=== PATIENT | male | born 1990 | race Caucasian/White ===

== ENCOUNTER 2023-01-30 07:46 | Day surgery (SDC) | payer BC, SELFPAY ==
[2023-01-30 07:57] VITALS: BP 143/84; PULSE 79; RESP 16; TEMP 36.6; O2SAT 98
[2023-01-30 08:46] VITALS: BP 139/56; PULSE 87; RESP 20; O2SAT 97
[2023-01-30] MEDS: BUPIVACAINE HCL 0.25% PF 25 MG/10 ML VIAL 4 ML INJ (08:47)
[2023-01-30 08:48] VITALS: BP 146/76; PULSE 97; RESP 20; O2SAT 96
--- NOTE | 2023-01-30 08:57 | W.PM.PROCNOT ---
Date of procedure: 01/30/23 Pre-op diagnosis: thoracic spondylosis Post-op diagnosis: same Procedure: Right thoracic 11,12 and lumbar 1 medial branch block Postop diagnosis same Under fluoroscopic guidance Solution injected: 2millilitersMarcaine 0.25% Anesthesia :none Immediate complications none Time out process compliant After informed consent obtained from the patient placed in the Prone proposition . area was prepped and draped in a sterile fashion using Cloraprep .25 gauge spinal needle inserted over each of the above mentioned target areas . Blackburn were directed towards the target under fluoroscopic guidance . after encountering each of the targets , no indication of intravascular intraneuronal or intrathecal needle tip placement. Then 0 .5 to 1 Milliliter was injected at each level. Blackburn removed postoperatively. patient transferred to recovery in stable condition to be discharged home after meeting criteria Anesthesia: Local Surgeon: Roberto Carlos Zambrano
== END 2023-01-30 08:52 | disposition home or self-care (01) ==
PROVIDERS: PCP Family Medicine; Visit Provider Anesthesiology Pain Medicine
DX: M47.814 Spondylosis without myelopathy or radiculopathy, thoracic region (principal)
CPT/HCPCS: 64490; 64491

== ENCOUNTER 2023-03-02 13:45 | Emergency (ER) | payer BC, SELFPAY ==
[2023-03-02 13:53] VITALS: BP 146/88; PULSE 98; RESP 18; TEMP 36.4; O2SAT 99; BMI 28.0
--- NOTE | 2023-03-02 13:57 | US_ITS ---
The [address] [address] Patient Name: PARISH WOLF MRN: [id number] date: 1990 Sex: M Assigned Patient Location: ED.MAIN Current Patient Location: Accession/Order Number: [id number] Exam Date: 03/02/2023 14:00 Report Date: 03/02/2023 14:51 At the request of: HALEIGH NORTON Procedure: US scrotum doppler EXAMINATION: US scrotum doppler HISTORY: left testicular pain r/o torsion COMPARISON: No relevant comparison available. TECHNIQUE: High-resolution sonographic imaging of the scrotum and contents was performed. FINDINGS: RIGHT: TESTICLE: Prior orchiectomy for leukemia. LEFT: TESTICLE: Homogeneous echotexture. No visible mass. Color Doppler flow is present. Spectral Doppler demonstrates arterial waveform and flow, 4/2 cm/s (PSV/EDV), and normal venous flow averaging 1 cm/s. EPIDIDYMIS: Normal size and echogenicity. OTHER: Prominent varicocele with vessels dilated up to 3 mm. US/US scrotum doppler IMPRESSION: 1. No testicular torsion or acute findings to account for patient's symptoms. 2. Prominent varicocele on left without appreciable thrombus. Electronically authenticated by: HILARIO ERNST Date: 03/02/2023 14:51
--- NOTE | 2023-03-02 14:00 | ED_ITS ---
Documented by User: CHELY Winkler 03/02/23 15:33 HPI - General Adult General Chief complaint: Urogenital-Male Stated complaint: PAIN IN ABDOMEN AND L TESTICLE Time Seen by Provider: 03/02/23 13:51 Source: patient Mode of arrival: walk-in History of Present Illness HPI narrative: patient is a 33-year-old male who presents to the Emergency Room with concerns of left testicular pain. Patient has a permanent history of leukemia, oh treatment since last year but did have right testicular involvement with orchectomy remotely. Patient states he is on testosterone and has atrophy of the left testicle with prominent varicocele by history, noted pain starting yesterday increasing today, oncology referred him to urology who over the phone told him to come to the Emergency Room 1st for evaluation. Patient gets his treatments through the [facility]. He denies any fevers or chills. Notes pain is moderate requesting only Tylenol/Motrin for pain. Patient denies any chest pain or shortness of breath, notes pain originates in the testicle and radiates to the left groin. He denies any penile discharge or drainage, denies dysuria. Related Data Home Medications Medication Instructions Recorded Confirmed amitriptyline 25 mg tablet 25 mg PO .hs 01/22/23 01/30/23 baclofen 10 mg tablet 10 mg PO TID PRN muscle spasm 01/22/23 01/30/23 bupropion HCl 300 mg 24 hr tablet, 300 mg PO QDAY 01/22/23 01/30/23 extended release gabapentin 600 mg tablet 600 mg PO TID 01/22/23 01/22/23 lorazepam 1 mg tablet (Ativan) 1 mg PO TID PRN sleep 01/22/23 01/30/23 ondansetron HCl 8 mg tablet 8 mg PO .hs PRN nausea and vomiting 01/22/23 01/30/23 testosterone cypionate 200 mg/mL 200 mg IM .[id number] 01/22/23 01/30/23 intramuscular oil Allergies Allergy/AdvReac Type Severity Reaction Status Date / Time amend Allergy Severe Vomiting Uncoded 01/30/23 08:03 Review of Systems ROS Constitutional Denies: fever or chills Eyes Denies: change in vision Ears, nose, mouth, and throat Denies: throat pain or neck pain Cardiovascular Denies: chest pain or palpitations Respiratory Denies: shortness of breath or cough Gastrointestinal Denies: abdominal pain or nausea Genitourinary Reports: testicular pain; Denies: painful urination, urinary frequency or urinary urgency Musculoskeletal Denies: back pain, neck pain or extremity pain Integumentary/Breast Denies: rash or redness Neurological Denies: headache Psychiatric Denies: anxiety [facility] Medical History (Updated 03/02/23 @ 15:33 by CHELY Winkler) Surgical History (Updated 01/22/23 @ 07:32 by Amanda Mejia) Exam Narrative Exam Narrative: Nurses notes and vital signs reviewed and patient is not hypoxic. General: The patient appears well and in no apparent distress. Patient is resting comfortably on cart. Skin: Warm, dry, no pallor noted. Head: Normocephalic, atraumatic Neck: Supple, trachea mid-line, no tenderness, no lymphadenopathy Eye: Pupils are equal, round and reactive to light, EOMI Ears, Nose, Mouth, and Throat: external exam unremarkable Cardiovascular: Regular Rate and Rhythm Respiratory: Patient is in no distress, no accessory muscle use, lungs are clear to auscultation, no wheezing, rales or rhonchi. Chest Wall: no tenderness Back: non-tender, no CVA tenderness Musculoskeletal: normal ROM, no tenderness, no swelling GI: Normal bowel sounds, no tenderness to palpation,minimal soreness. Left lower quadrant, no palpable mass. no masses appreciated. No rebound, guarding, or rigidity noted. : patient examined while standing, JOSE Bettencourt at the bedside. Patient circumcised male, no swelling or erythema. 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 Cremasteric reflex is present. No palpable hernia. Tenderness in the left inguinal region noted. No prominent lymphadenopathy Neurological: A&O x4 Psychiatric: Cooperative Constitutional Vital Signs, click to edit/add: Last Vital Signs Temp 97.6 F 03/02/23 13:53 Pulse 98 H 03/02/23 13:53 Resp 18 03/02/23 13:53 BP 146/88 H 03/02/23 13:53 Pulse Ox 99 03/02/23 13:53 O2 Del Method Room Air 03/02/23 13:53 Course Vital Signs Vital signs: Vital Signs Temperature 97.6 F 03/02/23 13:53 Pulse Rate 98 H 03/02/23 13:53 Respiratory Rate 18 03/02/23 13:53 Blood Pressure 146/88 H 03/02/23 13:53 Pulse Oximetry 99 03/02/23 13:53 Oxygen Delivery Method Room Air 03/02/23 13:53 Temperature 97.6 F 03/02/23 13:53 Pulse Rate 98 H 03/02/23 13:53 Respiratory Rate 18 03/02/23 13:53 Blood Pressure 146/88 H 03/02/23 13:53 Pulse Oximetry 99 03/02/23 13:53 Oxygen Delivery Method Room Air 03/02/23 13:53 Medical Decision Making MDM Narrative Medical decision making narrative: patient appears no distress, agreeable to Tylenol and Motrin for pain. We'll check baseline labs and obtain ultrasound for further evaluation of his left testicle pain. Symptoms started yesterday. discussed laboratory studies, urinalysis, ultrasound. We discussed the risks and benefits of prophylactic antibiotic. Patient would like to hold today, he is relieved that there is not any abdomen or mallet on the testicle itself other than the varicocele which she has previously aware of. He presents wearing boxer briefs, states he will try more supportive underwear, ice and elevation through the weekend with oral Motrin. He has scheduled follow-up with [facility] urology and we'll call if he has any concerns and may return to the Emergency Room if his symptoms worsen or new symptoms develop. Abdomen is unremarkable. The [facility] or to return to the emergency department should any of the signs or symptoms worsen or new symptoms develop. Patient had questions answered. The patient agrees with the following Diagnosis and Treatment plan and the patient will be discharged home. Lab Data Labs: Lab Results 03/02/23 Range/Units 14:38 WBC 6.0 (4.0-11.0) 10^3/uL RBC 4.94 (4.70-6.10) 10^6/uL Hgb 15.2 (14.0-18.0) g/dL Hct 43.9 (42.0-54.0) % MCV 88.9 (80.0-94.0) fL MCH 30.8 (25.9-34.0) pg MCHC 34.6 (29.9-35.2) g/dL RDW 13.2 (11.0-15.0) % Plt Count 152 (150-450) 10^3/uL MPV 10.4 (9.5-13.5) fL Neut % (Auto) 61.9 (43.0-75.0) % Lymph % (Auto) 25.5 (20.5-60.0) % [place] % (Auto) 10.1 (1.7-12.0) % Eos % (Auto) 1.5 (0.9-7.0) % Baso % (Auto) 0.7 (0.2-2.0) % Neut # (Auto) 3.7 (1.4-6.5) 10^3/uL Lymph # (Auto) 1.5 (1.2-3.8) 10^3/uL [place] # (Auto) 0.6 (0.3-0.8) 10^3/uL Eos # (Auto) 0.1 (0.0-0.7) 10^3/uL Baso # (Auto) 0.0 (0.0-0.1) 10^3/uL Abs Immat Gran (auto) 0.02 (0.00-0.03) 10^3/uL Imm/Tot Granulo (auto) 0.3 (0.0-0.5) % Sodium 140 (136-145) mmol/L Potassium 3.9 (3.5-5.1) mmol/L Chloride 104 (98-107) mmol/L Carbon Dioxide 31.9 (21.0-32.0) mmol/L Anion Gap 8.0 BUN 12.0 (7.0-18.0) mg/dL Creatinine 1.02 (0.70-1.30) mg/dL Est GFR ( Amer) >60 (>=60) Est GFR (Non-Af Amer) >60 (>=60) BUN/Creatinine Ratio 11.8 Glucose 112 H (74-106) mg/dL Calcium 9.3 (8.5-10.1) mg/dL Urine Color Yellow (YELLOW) Urine Clarity Clear (CLEAR) Urine pH 7.0 (5.0-9.0) Ur Specific Campbell 1.015 (1.005-1.025) Urine Protein Negative (NEG/TRACE) mg/dL Urine Glucose (UA) Negative (NEGATIVE) mg/dL Urine Ketones Negative (NEGATIVE) mg/dL Urine Occult Blood Negative (NEGATIVE) Urine Nitrite Negative (NEGATIVE) Urine Bilirubin Negative (NEGATIVE) Urine Urobilinogen 0.2 (0.2-1.0) EU/dL Ur Leukocyte Esterase Negative (NEGATIVE) Imaging Data US - abdomen: Radiologist's impression: Procedure: US scrotum doppler EXAMINATION: US scrotum doppler HISTORY: left testicular pain r/o torsion COMPARISON: No relevant comparison available. TECHNIQUE: High-resolution sonographic imaging of the scrotum and contents was performed. FINDINGS: RIGHT: TESTICLE: Prior orchiectomy for leukemia. LEFT: TESTICLE: Homogeneous echotexture. No visible mass. Color Doppler flow is present. Spectral Doppler demonstrates arterial waveform and flow, 4/2 cm/s (PSV/EDV), and normal venous flow averaging 1 cm/s. EPIDIDYMIS: Normal size and echogenicity. OTHER: Prominent varicocele with vessels dilated up to 3 mm. US/US scrotum doppler IMPRESSION: 1. No testicular torsion or acute findings to account for patient's symptoms. 2. Prominent varicocele on left without appreciable thrombus. Electronically authenticated by: HILARIO ERNST Date: 03/02/2023 14:51 Discharge Plan Discharge Chief Complaint: Urogenital-Male Clinical Impression: Left varicocele, Left testicular pain Patient Disposition: Home, Self-Care Time of Disposition Decision: 15:32 Condition: Good Mode of Transportation: Private Vehicle Prescriptions / Home Meds: No Action amitriptyline 25 mg tablet 25 mg PO .hs Patient Comments: as needed baclofen 10 mg tablet 10 mg PO TID PRN (Reason: muscle spasm) Rx Instructions: 1/2-1 tab tid gabapentin 600 mg tablet 600 mg PO TID Patient Comments: not taking testosterone cypionate 200 mg/mL oil 200 mg IM .[id number] ondansetron HCl 8 mg tablet 8 mg PO .hs PRN (Reason: nausea and vomiting) Patient Comments: as needed bupropion HCl 300 mg tablet extended release 24 hr 300 mg PO QDAY lorazepam [Ativan] 1 mg tablet 1 mg PO TID PRN (Reason: sleep) Patient Comments: as needed Instructions: Varicocele (ED), Testicle Pain (ED) Additional Instructions: keep appointment with [facility] urology. Return to Emergency Room if symptoms worsen or new symptoms develop Stand Alone Forms: Portal Instructions Referrals: Mickey Ramesh MD [Primary Care Provider] - 1 week Discharge Date/Time: 03/02/23 15:38 Documented by User: Purvi Benton MD 03/02/23 16:40 HPI - General Adult General Chief complaint: Urogenital-Male Stated complaint: PAIN IN ABDOMEN AND L TESTICLE Time Seen by Provider: 03/02/23 13:51 Related Data Home Medications Medication Instructions Recorded Confirmed amitriptyline 25 mg tablet 25 mg PO .hs 01/22/23 01/30/23 baclofen 10 mg tablet 10 mg PO TID PRN muscle spasm 01/22/23 01/30/23 bupropion HCl 300 mg 24 hr tablet, 300 mg PO QDAY 01/22/23 01/30/23 extended release gabapentin 600 mg tablet 600 mg PO TID 01/22/23 01/22/23 lorazepam 1 mg tablet (Ativan) 1 mg PO TID PRN sleep 01/22/23 01/30/23 ondansetron HCl 8 mg tablet 8 mg PO .hs PRN nausea and vomiting 01/22/23 01/30/23 testosterone cypionate 200 mg/mL 200 mg IM .[id number] 01/22/23 01/30/23 intramuscular oil Allergies Allergy/AdvReac Type Severity Reaction Status Date / Time amend Allergy Severe Vomiting Uncoded 01/30/23 08:03 [facility] Medical History (Updated 03/02/23 @ 15:33 by CHELY Winkler) Surgical History (Updated 01/22/23 @ 07:32 by Amanda Mejia) Exam Constitutional Vital Signs, click to edit/add: Last Vital Signs Temp 97.6 F 03/02/23 13:53 Pulse 98 H 03/02/23 13:53 Resp 18 03/02/23 13:53 BP 146/88 H 03/02/23 13:53 Pulse Ox 99 03/02/23 13:53 O2 Del Method Room Air 03/02/23 13:53 Course Vital Signs Vital signs: Vital Signs Temperature 97.6 F 03/02/23 13:53 Pulse Rate 98 H 03/02/23 13:53 Respiratory Rate 18 03/02/23 13:53 Blood Pressure 146/88 H 03/02/23 13:53 Pulse Oximetry 99 03/02/23 13:53 Oxygen Delivery Method Room Air 03/02/23 13:53 Temperature 97.6 F 03/02/23 13:53 Pulse Rate 98 H 03/02/23 13:53 Respiratory Rate 18 03/02/23 13:53 Blood Pressure 146/88 H 03/02/23 13:53 Pulse Oximetry 99 03/02/23 13:53 Oxygen Delivery Method Room Air 03/02/23 13:53 Medical Decision Making MDM Narrative Medical decision making narrative: patient appears no distress, agreeable to Tylenol and Motrin for pain. We'll check baseline labs and obtain ultrasound for further evaluation of his left testicle pain. Symptoms started yesterday. discussed laboratory studies, urinalysis, ultrasound. We discussed the risks and benefits of prophylactic antibiotic. Patient would like to hold today, he is relieved that there is not any abdomen or mallet on the testicle itself other than the varicocele which she has previously aware of. He presents wearing boxer briefs, states he will try more supportive underwear, ice and elevation through the weekend with oral Motrin. He has scheduled follow-up with [facility] urology and we'll call if he has any concerns and may return to the Emergency Room if his symptoms worsen or new symptoms develop. Abdomen is unremarkable. [facility] or to return to the emergency department should any of the signs or symptoms worsen or new symptoms develop. Patient had questions answered. The patient agrees with the following Diagnosis and Treatment plan and the patient will be discharged home. Attending physician attestation I have reviewed the mid-level documentation, agree with the documentation, medical decision making and treatment plan as outlined by the mid-level provider. Lab Data Labs: Lab Results 03/02/23 Range/Units 14:38 WBC 6.0 (4.0-11.0) 10^3/uL RBC 4.94 (4.70-6.10) 10^6/uL Hgb 15.2 (14.0-18.0) g/dL Hct 43.9 (42.0-54.0) % MCV 88.9 (80.0-94.0) fL MCH 30.8 (25.9-34.0) pg MCHC 34.6 (29.9-35.2) g/dL RDW 13.2 (11.0-15.0) % Plt Count 152 (150-450) 10^3/uL MPV 10.4 (9.5-13.5) fL Neut % (Auto) 61.9 (43.0-75.0) % Lymph % (Auto) 25.5 (20.5-60.0) % [place] % (Auto) 10.1 (1.7-12.0) % Eos % (Auto) 1.5 (0.9-7.0) % Baso % (Auto) 0.7 (0.2-2.0) % Neut # (Auto) 3.7 (1.4-6.5) 10^3/uL Lymph # (Auto) 1.5 (1.2-3.8) 10^3/uL [place] # (Auto) 0.6 (0.3-0.8) 10^3/uL Eos # (Auto) 0.1 (0.0-0.7) 10^3/uL Baso # (Auto) 0.0 (0.0-0.1) 10^3/uL Abs Immat Gran (auto) 0.02 (0.00-0.03) 10^3/uL Imm/Tot Granulo (auto) 0.3 (0.0-0.5) % Sodium 140 (136-145) mmol/L Potassium 3.9 (3.5-5.1) mmol/L Chloride 104 (98-107) mmol/L Carbon Dioxide 31.9 (21.0-32.0) mmol/L Anion Gap 8.0 BUN 12.0 (7.0-18.0) mg/dL Creatinine 1.02 (0.70-1.30) mg/dL Est GFR ( Amer) >60 (>=60) Est GFR (Non-Af Amer) >60 (>=60) BUN/Creatinine Ratio 11.8 Glucose 112 H (74-106) mg/dL Calcium 9.3 (8.5-10.1) mg/dL Urine Color Yellow (YELLOW) Urine Clarity Clear (CLEAR) Urine pH 7.0 (5.0-9.0) Ur Specific [place] 1.015 (1.005-1.025) Urine Protein Negative (NEG/TRACE) mg/dL Urine Glucose (UA) Negative (NEGATIVE) mg/dL Urine Ketones Negative (NEGATIVE) mg/dL Urine Occult Blood Negative (NEGATIVE) Urine Nitrite Negative (NEGATIVE) Urine Bilirubin Negative (NEGATIVE) Urine Urobilinogen 0.2 (0.2-1.0) EU/dL Ur Leukocyte Esterase Negative (NEGATIVE) Discharge Plan Discharge Chief Complaint: Urogenital-Male Clinical Impression: Left varicocele, Left testicular pain Patient Disposition: Home, Self-Care Time of Disposition Decision: 15:32 Condition: Good Mode of Transportation: Private Vehicle Prescriptions / Home Meds: No Action amitriptyline 25 mg tablet 25 mg PO .hs Patient Comments: as needed baclofen 10 mg tablet 10 mg PO TID PRN (Reason: muscle spasm) Rx Instructions: 1/2-1 tab tid gabapentin 600 mg tablet 600 mg PO TID Patient Comments: not taking testosterone cypionate 200 mg/mL oil 200 mg IM .[id number] ondansetron HCl 8 mg tablet 8 mg PO .hs PRN (Reason: nausea and vomiting) Patient Comments: as needed bupropion HCl 300 mg tablet extended release 24 hr 300 mg PO QDAY lorazepam [Ativan] 1 mg tablet 1 mg PO TID PRN (Reason: sleep) Patient Comments: as needed Instructions: Varicocele (ED), Testicle Pain (ED) Additional Instructions: keep appointment with [facility] urology. Return to Emergency Room if symptoms worsen or new symptoms develop Stand Alone Forms: Portal Instructions Referrals: Mickey Ramesh MD [Primary Care Provider] - 1 week Discharge Date/Time: 03/02/23 15:38
[2023-03-02] MEDS: IBUPROFEN 600 MG TABLET PO (14:12)
[2023-03-02] MEDS: ACETAMINOPHEN 500 MG TABLET 1000 MG PO (14:12)
[2023-03-02 14:51] LABS: Basophils Percent Auto 0.7 % (0.2-2.0); Eosinophils Absolute Auto 0.1 10^3/uL (0.0-0.7); Eosinophils Percent Auto 1.5 % (0.9-7.0); Hematocrit 43.9 % (42.0-54.0); Hemoglobin 15.2 g/dL (14.0-18.0); Immature Granulocytes Abs Auto 0.02 10^3/uL (0.00-0.03); Immature Granulocytes Pct Auto 0.3 % (0.0-0.5); Lymphocytes Absolute Auto 1.5 10^3/uL (1.2-3.8); Lymphocytes Percent Auto 25.5 % (20.5-60.0); Mean Corpuscular HGB Conc 34.6 g/dL (29.9-35.2); Mean Corpuscular Hemoglobin 30.8 pg (25.9-34.0); Mean Corpuscular Volume 88.9 fL (80.0-94.0); Mean Platelet Volume 10.4 fL (9.5-13.5); Monocytes Absolute Auto 0.6 10^3/uL (0.3-0.8); Monocytes Percent Auto 10.1 % (1.7-12.0); Neutrophils Absolute Auto 3.7 10^3/uL (1.4-6.5); Neutrophils Percent Auto 61.9 % (43.0-75.0); Platelet Count 152 10^3/uL (150-450); Red Blood Count 4.94 10^6/uL (4.70-6.10); Red Cell Distribution Width 13.2 % (11.0-15.0)
[2023-03-02 14:58] LABS: BUN Creatinine Ratio 11.8; Calcium 9.3 mg/dL (8.5-10.1); Carbon Dioxide 31.9 mmol/L (21.0-32.0); Chloride 104 mmol/L (98-107); Estimated GFR (African America >60 (>=60); Estimated GFR (Non-African Ame >60 (>=60); Glucose 112 mg/dL (74-106); Potassium 3.9 mmol/L (3.5-5.1); Sodium 140 mmol/L (136-145)
[2023-03-02 15:03] LABS: Bilirubin Urine NEGATIVE (NEGATIVE); Blood Urine NEGATIVE (NEGATIVE); Clarity Urine CLEAR (CLEAR); Color Urine YELLOW (YELLOW); Glucose Urine UA NEGATIVE (NEGATIVE); Ketones Urine NEGATIVE (NEGATIVE); Leukocyte Esterase Urine NEGATIVE (NEGATIVE); Nitrite Urine NEGATIVE (NEGATIVE); Protein Urine NEGATIVE (NEG/TRACE); Specific Gravity Urine 1.015 (1.005-1.025); Urobilinogen Urine 0.2 EU/dL (0.2-1.0)
[2023-03-02 15:06] LABS: Urine Microscopic Indicated NO
== END 2023-03-02 15:38 | disposition home or self-care (01) ==
PROVIDERS: Personal Emergency Response Attendant; Emergency Provider Emergency Medicine; PCP Family Medicine
DX: I86.1 Scrotal varices (principal); N50.812 Left testicular pain; Z79.899 Other long term (current) drug therapy
CPT/HCPCS: 36415; 76870; 80048; 81003; 85025; 93976; 99284

== ENCOUNTER 2023-03-28 08:05 | Outpatient (OUT) | payer BC, SELFPAY ==
--- NOTE | 2023-03-28 08:39 | PM.CN ---
Consult Note: HPI Data of Consult Requesting Physician: Isela Barbosa NP Primary Care Provider: Mickey Ramesh MD Consult Narrative Reason for consult: MBB #2 f/u Narrative: Alex Monaco a pleasant 33 year old male presents for evaluation of chronic upper back pain. Patient has underwent two MBBs at right T11/12 T12/L1 and would like to discuss proceeding with thermal RFA, has historically had RFAs at these levels with >6 months pain and functional improvement with Dr Weinstein. cc:: CC: Isela Barbosa NP Review of Systems ROS Status of ROS 10 or more systems reviewed and unremarkable except as noted in history and below Musculoskeletal Reports: back pain PFSH PFSH Medical History Surgical History Meds Home Medications and Allergies Home Medications Medication Instructions Recorded Confirmed Type amitriptyline 25 mg tablet 25 mg PO .hs 01/22/23 01/30/23 History baclofen 10 mg tablet 10 mg PO TID PRN muscle spasm 01/22/23 01/30/23 History bupropion HCl 300 mg 24 hr tablet, 300 mg PO QDAY 01/22/23 01/30/23 History extended release gabapentin 600 mg tablet 600 mg PO TID 01/22/23 01/22/23 History lorazepam 1 mg tablet (Ativan) 1 mg PO TID PRN sleep 01/22/23 01/30/23 History ondansetron HCl 8 mg tablet 8 mg PO .hs PRN nausea and vomiting 01/22/23 01/30/23 History testosterone cypionate 200 mg/mL 200 mg IM .[id number] 01/22/23 01/30/23 History intramuscular oil Allergies Allergy/AdvReac Type Severity Reaction Status Date / Time amend Allergy Severe Vomiting Uncoded 01/30/23 08:03 Exam Constitutional Documenting provider has reviewed patient's vital signs: yes Common normals: no apparent distress, oriented x3, healthy appearing, alert and well nourished General appearance: cooperative HENMT Common normals: normocephalic, hearing grossly normal bilaterally and moist oral mucous membranes Head and scalp: normocephalic Eye Common normals: PERRL Pupil: PERRL Neck & C-Spine Common normals: full ROM General: normal visual inspection Chest Common normals: inspection of chest normal Respiratory Common normals: normal respiratory effort, no retractions and no use of accessory muscles Back & Pelvis Thoracic spine/upper back: normal to inspection, pain with ROM, thoracic spinal tenderness and paraspinal muscle tenderness Lumbar spine/lower back: normal to inspection, pain with ROM and lumbar spinal tenderness Other: positive facet loading bilaterally, right side worse than left. Predominately axial back pain. no radiculopathy or loss of strength/sensation Extremity Common normals: normal to inspection, full ROM and normal capillary refill Neuro Common normals: oriented x3, CN's II-XII intact bilaterally, moves all extremities, no focal motor deficits, no sensory deficits noted, deep tendon reflexes 2+ bilaterally and gait normal Sensorium/orientation: alert Motor exam: strength 5/5 throughout and no movement abnormalities noted Psych Common normals: mental status grossly normal, thought process normal, cooperative, affect normal, speech normal and activity/motor behavior normal Speech: normal speech Thought process: normal thought process Results Additional Findings Additional findings: The patient has had over 3 months of moderate to severe upper back pain with functional impairment and inadequate response to conservative care including NSAIDS (unless there are contraindication such as concurrent blood thinners), multiple oral or topical pain medications, and home exercise program/physical therapy.? Patient has completed >6 weeks of guided home exercise program and/or formal physical therapy program without relief of their symptoms.? I have reviewed the imaging of the thoracic and lumbar spine and no red flags were identified.? The imaging reveals radiographic findings consistent with facet arthropathy. The Oswestry Disability Index was completed, and the patient scored a 28%.? The patient noted the following:??moderate pain, pain with lifting weights, pain prevents him from sitting more than 1 hour, pain prevents him from standing more than 1 hour, pain interferes with personal and social life. We discussed the risks and benefits of the procedure with the patient, and we are planning on using sedation as outlined in the guidelines from Medicare unless there is a documented reason that sedation would be strongly recommended.?? The procedure will be completed with fluoroscopic guidance.? Assessment and Plan Assessment and Plan (1) Thoracic spondylosis: (2) Lumbar spondylosis: Plan proceed with thermal RFA under fluoroscopy at right T11/12 T12/L1 under IV sedation, risks vs benefits discussed. Patient has had previous RFAs with IV sedation continue medications as ordered, no side effects f/u 1 month after procedure
== END 2023-03-28 08:06 | disposition home or self-care (01) ==
PROVIDERS: PCP Family Medicine; Visit Provider Nurse Practitioner
DX: M47.814 Spondylosis without myelopathy or radiculopathy, thoracic region (principal); M47.816 Spondylosis without myelopathy or radiculopathy, lumbar region
CPT/HCPCS: G0463

== ENCOUNTER 2023-04-24 07:17 | Day surgery (SDC) | payer BC, SELFPAY ==
[2023-04-24 07:39] VITALS: BP 116/77; PULSE 85; RESP 14; TEMP 36.3; O2SAT 99
[2023-04-24] MEDS: 0.9 % SODIUM CHLORIDE 500 ML IV (07:44)
[2023-04-24] MEDS: METHYLPREDNISOLONE ACETATE 40 MG/ML VIAL INJ (08:35)
[2023-04-24] MEDS: LIDOCAINE HCL 2% 400 MG/20 ML MDV 15 ML INJ (08:35)
[2023-04-24] MEDS: BUPIVACAINE HCL 0.25% PF 25 MG/10 ML VIAL INJ (08:35)
[2023-04-24 08:43] VITALS: BP 108/66; PULSE 89; RESP 100; O2SAT 18
[2023-04-24 08:46] VITALS: BP 117/72; PULSE 81; RESP 18; O2SAT 100
[2023-04-24 08:49] VITALS: BP 129/79; PULSE 89; RESP 16; TEMP 36.6; O2SAT 100
[2023-04-24 08:50] VITALS: BP 117/81; PULSE 85; RESP 16; TEMP 36.6; O2SAT 97
--- NOTE | 2023-04-24 08:57 | W.PM.PROCNOT ---
Date of procedure: 04/24/23 Pre-op diagnosis: Thoracic Spondylosis Post-op diagnosis: same as pre-op Procedure: Right Thoracic 11/12, 12/lumbar 1 Radiofrequency ablation Under fluoroscopic guidance Rhizotomy was created using radio frequency ablation at 80?C for 90 seconds 1 to 2 lesions created at each site. Post lesioning injection of 2 mL each of 0.25% Marcaine and 2% lidocaine with Depo-Medrol 40mg. 0.5 to 1 mL injected at each site IV in place yes If Intravenous fluids: NS at KVO Anesthesia local 2% lidocaine for Anesthesia Other: MAC Timeout process compliant After informed consent obtained.Patient brought to the procedure room placed in the prone position skin overlying the area was prepped and draped in a sterile fashion using betadine. 25 gauge needle was used to create a skin wheal over each of the targeted areas utilizing 2% lidocaine. A rhizotomy needle with a 10 mm active tip was inserted over each of the anesthetized areas and directed towards each of the medial branches accomplished under fluoroscopic guidance. after encountering the same we had positive sensory stimulation, negative motor stimulation was noted. lesions were then created. Post lesioning, steroid solution was injected needles removed. Patient was transferred to recovery room in stable condition to be discharged home after meeting criteria. Anesthesia: MAC Surgeon: Roberto Carlos Zambrano Condition: stable
== END 2023-04-24 09:09 | disposition home or self-care (01) ==
PROVIDERS: PCP Family Medicine; Visit Provider Anesthesiology Pain Medicine
DX: M47.814 Spondylosis without myelopathy or radiculopathy, thoracic region (principal)
CPT/HCPCS: 64633; 64634; J1030; J2704

== ENCOUNTER 2024-05-01 18:01 | Emergency (ER) | payer OTHER, SELFPAY ==
[2024-05-01 18:24] VITALS: BP 147/88; PULSE 99; TEMP 36.8; O2SAT 100; BMI 29.5
[2024-05-01 20:29] LABS: Bilirubin Urine NEGATIVE (NEGATIVE); Blood Urine NEGATIVE (NEGATIVE); Clarity Urine CLEAR (CLEAR); Color Urine YELLOW (YELLOW); Glucose Urine UA NEGATIVE (NEGATIVE); Ketones Urine NEGATIVE (NEGATIVE); Leukocyte Esterase Urine NEGATIVE (NEGATIVE); Nitrite Urine NEGATIVE (NEGATIVE); Protein Urine NEGATIVE (NEG/TRACE); Urobilinogen Urine 0.2 EU/dL (0.2-1.0)
--- NOTE | 2024-05-01 20:32 | CT_ITS ---
[facility] [place] [id number] Patient Name: PARISH WOLF MRN: [id number] date: 1990 Sex: M Assigned Patient Location: ER Current Patient Location: [facility] Accession/Order Number: [id number] Exam Date: 05/01/2024 20:38 Report Date: 05/01/2024 22:38 At the request of: DULCE WARD Procedure: CT abdomen pelvis wo con EXAM: CT abdomen pelvis wo con HISTORY: left flank pain, r/o stone COMPARISON: None. TECHNIQUE: Unenhanced CT imaging of the abdomen and pelvis. This CT exam was performed using one or more of the following dose reduction techniques: Automated exposure control, adjustment of the mA and/or KV according to patient size, or use of iterative reconstruction technique. Unless otherwise stated, incidental findings do not require dedicated follow-up imaging. FINDINGS: The lung bases are clear. The heart size is normal. The liver, spleen, pancreas, adrenal glands, and kidneys have a normal noncontrast enhanced appearance. The gallbladder is distended without biliary duct dilatation. The bowel is unobstructed. The appendix is normal. There is scattered colonic diverticulosis without diverticulitis. There is no free fluid or free air within the abdomen or pelvis. The bones are intact without acute abnormality. CT/CT abdomen pelvis wo con IMPRESSION: 1. No acute abnormality. 2. Colonic diverticulosis. Electronically authenticated by: MAURICE FOY Date: 05/01/2024 22:38
--- NOTE | 2024-05-01 20:32 | ED_ITS ---
HPI HPI - General Adult General Chief complaint: Back Pain/Injury Stated complaint: Flank Pain Time Seen by Provider: 05/01/24 18:53 Source: patient Mode of arrival: walk-in Limitations: no limitations History of Present Illness HPI narrative: 34-year-old male presents to the emergency department for left flank pain. It started about 5:00 tonight and it felt like a popping sensation. The pain has now radiated towards his abdomen from the left flank area. He has never had a kidney stone and has seen no hematuria. There is no injury. No right-sided pain. Related Data Home Medications ?Medication ?Instructions ?Recorded ?Confirmed amitriptyline 25 mg tablet 25 mg PO .hs 01/22/23 04/24/23 baclofen 10 mg tablet 10 mg PO TID PRN muscle spasm 01/22/23 04/24/23 bupropion HCl 300 mg 24 hr tablet, 300 mg PO QDAY 01/22/23 04/24/23 extended release lorazepam 1 mg tablet (Ativan) 1 mg PO TID PRN sleep 01/22/23 04/24/23 ondansetron HCl 8 mg tablet 8 mg PO .hs PRN nausea and vomiting 01/22/23 04/24/23 testosterone cypionate 200 mg/mL 200 mg IM .[id number] 01/22/23 04/24/23 intramuscular oil Previous Rx's ?Medication ?Instructions ?Recorded baclofen 10 mg tablet 10 mg PO TID #90 tabs 03/28/23 Allergies Allergy/AdvReac Type Severity Reaction Status Date / Time aprepitant (From [place]end) AdvReac Severe Vomiting Verified 05/01/24 18:24 fosaprepitant (From Emend) AdvReac Severe Vomiting Verified 05/01/24 18:24 Opioid HPI Opioid Management Most Recent Opioid Data: Last Pain Scale 4 04/24/23 07:39 04/24/23 Review of Systems ROS Narrative A ten point review of systems is negative except as noted above. PFSH PFSH Medical History Surgical History Social History Little interest or pleasure in doing things: not at all Feeling down, depressed, or hopeless: not at all Exam Narrative Exam Narrative: Nurses note and vital signs reviewed and patient is not hypoxic. General: The patient appears well and in no apparent distress. Patient is resting comfortably on cart. Skin: Warm, dry, no pallor noted. There is no rash noted. Head: Normocephalic, atraumatic Eye: Normal conjunctiva, no drainage Ears, Nose, Mouth, and Throat: oral mucosa is moist. Nares patent. Cardiovascular: Regular Rate and Rhythm Respiratory: Patient is in no distress, no accessory muscle use, lungs are clear to auscultation, no wheezing, rales or rhonchi Back: non-tender, no CVA tenderness bilaterally to percussion. GI: Soft and nontender. No bruise or rash in the flank or abdominal areas. Musculoskeletal: The patient has no evidence of calf tenderness, no pitting edema, symmetrical pulses noted bilaterally Neurological: Awake and alert and oriented Psychiatric: Cooperative Constitutional Vital Signs, click to edit/add: Last Vital Signs Temp 98.3 F 05/01/24 18:24 Pulse 86 05/01/24 22:35 Resp 18 05/01/24 22:35 BP 126/91 05/01/24 22:35 Pulse Ox 99 05/01/24 22:35 O2 Del Method Room Air 05/01/24 18:24 Course Vital Signs Vital signs: Vital Signs Temperature 98.3 F 05/01/24 18:24 Pulse Rate 99 H 05/01/24 18:24 Respiratory Rate 20 05/01/24 18:24 Blood Pressure 147/88 H 05/01/24 18:24 Pulse Oximetry 100 05/01/24 18:24 Oxygen Delivery Method Room Air 05/01/24 18:24 Temperature 98.3 F 05/01/24 18:24 Pulse Rate 86 05/01/24 22:35 Respiratory Rate 18 05/01/24 22:35 Blood Pressure 126/91 05/01/24 22:35 Pulse Oximetry 99 05/01/24 22:35 Oxygen Delivery Method Room Air 05/01/24 18:24 Medical Decision Making MDM Narrative Medical decision making narrative: Blood work, urinalysis, and CAT scan are all negative. My clinical impression at this point is that he likely has a muscle strain and he was advised rest and ibuprofen. Treatment diagnosis and follow-up were discussed with the patient. Differential Diagnosis Differential Diagnosis: Kidney stone, muscle strain, UTI Lab Data Lab results reviewed: Yes I reviewed the patient's lab results Labs: Lab Results 05/01/24 05/01/24 Range/Units 20:05 20:10 WBC 10.8 (4.0-11.0) 10^3/uL RBC 5.61 (4.70-6.10) 10^6/uL Hgb 18.3 H (14.0-18.0) g/dL Hct 50.7 (42.0-54.0) % MCV 90.4 (80.0-94.0) fL MCH 32.6 (25.9-34.0) pg MCHC 36.1 H (29.9-35.2) g/dL RDW 12.3 (11.0-15.0) % Plt Count 197 (150-450) 10^3/uL MPV 10.5 (9.5-13.5) fL Neut % (Auto) 68.9 (43.0-75.0) % Lymph % (Auto) 21.0 (20.5-60.0) % [place] % (Auto) 8.2 (1.7-12.0) % Eos % (Auto) 0.9 (0.9-7.0) % Baso % (Auto) 0.7 (0.2-2.0) % Neut # (Auto) 7.4 H (1.4-6.5) 10^3/uL Lymph # (Auto) 2.3 (1.2-3.8) 10^3/uL [place] # (Auto) 0.9 H (0.3-0.8) 10^3/uL Eos # (Auto) 0.1 (0.0-0.7) 10^3/uL Baso # (Auto) 0.1 (0.0-0.1) 10^3/uL Abs Immat Gran (auto) 0.03 (0.00-0.03) 10^3/uL Imm/Tot Granulo (auto) 0.3 (0.0-0.5) % Sodium 136 (136-145) mmol/L Potassium 3.5 (3.5-5.1) mmol/L Chloride 99 (98-107) mmol/L Carbon Dioxide 30.5 (21.0-32.0) mmol/L Anion Gap 10.0 BUN 9.0 (7.0-18.0) mg/dL Creatinine 1.19 (0.70-1.30) mg/dL Est GFR ( Amer) >60 (>=60 mL/min/1.73m^2) Est GFR (Non-Af Amer) >60 (>=60 mL/min/1.73m^2) BUN/Creatinine Ratio 7.6 Glucose 89 (74-106) mg/dL Calcium 9.9 (8.5-10.1) mg/dL Urine Color Yellow (YELLOW) Urine Clarity Clear (CLEAR) Urine pH 7.0 (5.0-9.0) Ur Specific [place] 1.020 (1.005-1.025) Urine Protein Negative (NEG/TRACE) mg/dL Urine Glucose (UA) Negative (NEGATIVE) mg/dL Urine Ketones Negative (NEGATIVE) mg/dL Urine Occult Blood Negative (NEGATIVE) Urine Nitrite Negative (NEGATIVE) Urine Bilirubin Negative (NEGATIVE) Urine Urobilinogen 0.2 (0.2-1.0) EU/dL Ur Leukocyte Esterase Negative (NEGATIVE) Urine RBC 0-2 (0-2) #/HPF Urine WBC None seen (NONE SEEN) #/HPF Ur Squamous Epith Cells None seen (NONE/RARE) #/LPF Urine Crystals None seen (None Seen) #/HPF Urine Bacteria None seen (NONE SEEN) #/HPF Urine Casts None seen (NONE SEEN) #/LPF Urine Mucus None seen (NONE SEEN) Ur Culture Indicated? No Imaging Data CT scan - abdomen: Radiologist's impression: ITS Impressions Abdomen/Pelvis CT 05/01/24 20:32 IMPRESSION: 1. No acute abnormality. 2. Colonic diverticulosis. Electronically authenticated by: MAURICE FOY Date: 05/01/2024 22:38 Discharge Plan Discharge Chief Complaint: Back Pain/Injury Clinical Impression: Muscle strain Patient Disposition: Home, Self-Care Time of Disposition Decision: 22:50 Condition: Good Mode of Transportation: Private Vehicle Prescriptions / Home Meds: No Action amitriptyline 25 mg tablet 25 mg PO .hs Patient Comments: as needed baclofen 10 mg tablet 10 mg PO TID PRN (Reason: muscle spasm) Rx Instructions: 1/2-1 tab tid testosterone cypionate 200 mg/mL oil 200 mg IM .[id number] ondansetron HCl 8 mg tablet 8 mg PO .hs PRN (Reason: nausea and vomiting) Patient Comments: as needed bupropion HCl 300 mg tablet extended release 24 hr 300 mg PO QDAY lorazepam [Ativan] 1 mg tablet 1 mg PO TID PRN (Reason: sleep) Patient Comments: as needed baclofen 10 mg tablet 10 mg PO TID Qty: 90 2RF Rx Instructions: take 1/2 to 1 tab 3 times daily Print Language: [place] Instructions: Muscle Strain (ED) Referrals: Mickey Ramesh MD [Primary Care Provider] - 1 week
--- NOTE | 2024-05-01 20:33 | PC.NURSE ---
pain radiates to left flank, no h/o kidney stones
[2024-05-01 20:36] LABS: Bacteria Urine NONE SEEN #/HPF (NONE SEEN); Cast Seen? NONE SEEN #/LPF (NONE SEEN); Crystals Seen? None Seen #/HPF (None Seen); Mucus Urine NONE SEEN (NONE SEEN); RBC Urine 0-2 #/HPF (0-2); Squamous Epithelial Cell Urine NONE SEEN #/LPF (NONE/RARE); Urine Culture Indicated NO; WBC Urine NONE SEEN #/HPF (NONE SEEN)
[2024-05-01 20:36] LABS: Basophils Absolute Auto 0.1 10^3/uL (0.0-0.1); Basophils Percent Auto 0.7 % (0.2-2.0); Eosinophils Absolute Auto 0.1 10^3/uL (0.0-0.7); Eosinophils Percent Auto 0.9 % (0.9-7.0); Hematocrit 50.7 % (42.0-54.0); Hemoglobin 18.3 g/dL (14.0-18.0); Immature Granulocytes Abs Auto 0.03 10^3/uL (0.00-0.03); Immature Granulocytes Pct Auto 0.3 % (0.0-0.5); Lymphocytes Absolute Auto 2.3 10^3/uL (1.2-3.8); Mean Corpuscular HGB Conc 36.1 g/dL (29.9-35.2); Mean Corpuscular Hemoglobin 32.6 pg (25.9-34.0); Mean Corpuscular Volume 90.4 fL (80.0-94.0); Mean Platelet Volume 10.5 fL (9.5-13.5); Monocytes Absolute Auto 0.9 10^3/uL (0.3-0.8); Monocytes Percent Auto 8.2 % (1.7-12.0); Neutrophils Absolute Auto 7.4 10^3/uL (1.4-6.5); Neutrophils Percent Auto 68.9 % (43.0-75.0); Platelet Count 197 10^3/uL (150-450); Red Blood Count 5.61 10^6/uL (4.70-6.10); Red Cell Distribution Width 12.3 % (11.0-15.0); White Blood Count 10.8 10^3/uL (4.0-11.0)
[2024-05-01 20:46] LABS: BUN Creatinine Ratio 7.6; Calcium 9.9 mg/dL (8.5-10.1); Carbon Dioxide 30.5 mmol/L (21.0-32.0); Chloride 99 mmol/L (98-107); Estimated GFR (African America >60 (>=60 mL/min/1.73m^2); Estimated GFR (Non-African Ame >60 (>=60 mL/min/1.73m^2); Glucose 89 mg/dL (74-106); Potassium 3.5 mmol/L (3.5-5.1); Sodium 136 mmol/L (136-145)
[2024-05-01 21:07] VITALS: BP 130/87; PULSE 86; O2SAT 99
[2024-05-01 22:35] VITALS: BP 126/91; PULSE 86; O2SAT 99
== END 2024-05-01 23:15 | disposition home or self-care (01) ==
PROVIDERS: Emergency Provider Emergency Medicine; PCP Family Medicine
DX: S39.011A Strain of muscle, fascia and tendon of abdomen, initial encounter (principal); X50.9XXA Other and unspecified overexertion or strenuous movements or postures, initial encounter
CPT/HCPCS: 36415; 74176; 80048; 81001; 85025; 99285